=== PATIENT | female | born 1985 | race Asian ===

== ENCOUNTER → 2024-04-01 13:16 | Outpatient (REF) | payer OTHER, SELFPAY ==
[2024-04-01 19:21] LABS: Hepatitis B Surface Antigen Negative (Negative)
[2024-04-01 19:39] LABS: Hepatitis B Surface Antibody Positive; Hepatitis C Antibody Negative (Negative)
[2024-04-02 15:19] LABS: HIV Combo Negative (Negative)
== END ==
LOC: OHS 13:16
PROVIDERS: ATTENDING PHYSICIAN Nurse Practitioner Family
DX: Z57.8 Occupational exposure to other risk factors (principal)
CPT/HCPCS: 36415; 86706; 86803; 87340; 87389